=== PATIENT | male | born 1985 | race Two or more races ===

== ENCOUNTER 2024-10-21 10:33 | Emergency (ER) | payer OTHER ==
[~2024-10-21] VITALS: Ht 160 cm; Wt 68.2 kg
[2024-10-21 10:39] VITALS: BP 155/92; PULSE 100; RESP 16; TEMP 98.5; O2SAT 99
== END 2024-10-21 12:55 | disposition left against medical advice (07) ==
LOC: EMS 10:36
DX: F41.0 Panic disorder [episodic paroxysmal anxiety] (principal); Z53.21 Procedure and treatment not carried out due to patient leaving prior to being seen by health care provider